=== PATIENT | male | born 1945 | race Caucasian/White ===

== ENCOUNTER 2017-05-23 13:56 | Emergency (ER) | payer MEDICARE, OTHER ==
--- NOTE | 2017-05-23 14:29 | ERNOTE ---
Medical Problem HPI - Narrative Date of Service: 05/23/17 - General Chief Complaint: General Assessment Time Seen by Provider: 05/23/17 14:12 Source: patient Exam Limitations: no limitations - Immun/Allergies/Home Medications Immunizations: IMMUNIZATION HX Immunizations Up to Date Yes History of Influenza Vaccine Yes Hx Pneumococcal Vaccination Yes Allergies/Adverse Reactions: Allergies No Known Allergies Allergy (Verified 05/23/17 14:11) Home Medications: HOME MEDICATIONS Insulin Aspart [Novolog] 35 unit SQ BID 01/26/15 [Last Taken Unknown] Insulin Glargine,Hum.rec.anlog [Lantus] 90 unit SQ HS 01/26/15 [Last Taken Unknown] Lisinopril [Zestril] 40 mg PO DAILY 01/26/15 [Last Taken Unknown] Simvastatin [Zocor] 80 mg PO DAILY 01/26/15 [Last Taken Unknown] Naproxen [Naprosyn] 500 mg PO BID PRN #60 tab 05/23/17 [Last Taken Unknown] - History of Present History Narrative: Pt. ambulates in from home with c/o LLE pain and L flank pain and LLQ abd pain with constipation. Pt. denies any fever but states that his abd pain and constipation started 2 days ago. Pt. denies any SOB, CP, nausea or vomiting dysuria or hematuria. Pt. denies any alleviating or aggravating factors, or prehospital treatment. Review of Systems - Review of Systems Constitutional: Present: no symptoms reported. Absent: recent illness, fever, chills, weakness, fatigue, malaise EYE: Present: no symptoms reported ENT: Present: no symptoms reported Respiratory: Present: no symptoms reported. Absent: shortness of breath, cough , wheezing Cardiology: Present: no symptoms reported. Absent: chest pain, palpitations, edema Gastrointestinal/Abdominal: Present: constipation, abdominal pain. Absent: nausea, vomiting, diarrhea Genitourinary: Present: pain - L flank. Absent: dysuria, hematuria, decreased urinary output Musculoskeletal: Present: back pain - L flank. Absent: neck pain, joint pain Skin: Present: no symptoms reported. Absent: rash, change in color Neurological: Present: no symptoms reported. Absent: headache, dizziness/light- headedness, numbness, tingling All Other Systems: All systems neg except as marked - Patient's Past Medical History Patient History - Medical: Chronic Pain, Diabetes Type 2 Insulin Dependent, Kidney stone Patient History - Cardiac/Respiratory: Hypertension Patient History - Cancer: No Hx of Cancer Patient History - Surgical Procedures: Other Patient History - Other: None - Social History Smoking Status: Current every day smoker Have you smoked in the past 12 months: Yes - Immunizations Immunizations Up to Date: Yes Hx Pneumococcal Vaccination: Yes History of Influenza Vaccine: Yes Physical Exam - Physical Exam General Appearance: Present: wd/wn, alert, no apparent distress Head Exam: Present: normal inspection, no evidence of injury Eye Exam: Normal inspection: bilateral, PERRL: bilateral, EOMI: bilateral Ears, Nose, Throat: Present: normal ENT inspection, normal pharynx Neck: Present: normal inspection, nontender. Absent: lymphadenopathy (R), lymphadenopathy (L) Respiratory: Present: no respiratory distress, no accessory muscle use, chest nontender, decreased breath sounds - BLL, crackles - course uupper lobes clear with cough Cardiovascular/Chest: Present: regular rate, rhythm, no murmur, normal peripheral pulses Gastrointestinal/Abdominal: Present: tenderness - LLQ, abnormal bowel sounds - hypo, distended, other - ketosis of sin related to SQ insulin use in diffuse areas of abdominal wall. Absent: McBurney sign, Obturator sign, Lang sign, Psoas sign, mass, hernia Back Exam: Present: normal range of motion, no vertebral tenderness, CVA tenderness (L). Absent: vertebral tenderness, decreased range of motion, muscle spasm Extremity Exam: Present: normal range of motion, no edema, calf tenderness Neurological Exam: Present: alert, oriented, normal mood/affect, no motor/ sensory deficits Skin Exam: Present: normal color, warm/dry. Absent: pallor, skin rash ED Progress - Date and Time Seen: Date and Time: 05/23/17 14:27 Feel that since pt. is sedentary and he has L calf and post knee pain that radiates to his inner thigh he could have a DVT and will assess with US and pt. is most likely constipated so if pt. without obstruction or free air will treat constipation in ER and outpatient basis. 05/23/17 15:51 Pt. with significantly elevted WBC and LLQ pain and pt. without any evidence for this elevated WBC on plain film discussed case with Dr Drake and he recommends obtaining a CT of his abdomen. 05/23/17 16:[address] temporarily as pt. states that his WBC is always elevated 15-[address] scan. 05/23/17 17:[address] at [facility] as they state they are unable to get doctors global compensation director after hours. Educated pt. that he needs to make follow up call and get bone marrow biopsy as the elevated WBC and leg pain can be an ominous sign and pt. refused bone marrow biopsy in past per pt report when his PCP and oncology wanted to do so previously. - Results and Orders Patient's Lab Results:: I have reviewed the patient's lab results. - Vital Signs Patient's Vital Signs:: I have reviewed the patient's vital signs. Vital Signs: Vital Signs 05/23/17 14:07 Temperature 36.3 C L Pulse Rate 89 Respiratory 12 Rate Blood Pressure 125/71 O2 Sat by Pulse 94 Oximetry - X-Ray X-Ray #1 X-Ray: abdomen Interpretation: Reviewed by me X-ray Comments: non obstructive bowel gas and moderate stool retention. - CT/Ultrasound CT/Ultrasound Narrative: LLE US negative for DVT - Progress/Reassessment Chief Complaint: Lower Extremity Pain/ Injury Progress:: Improved Departure - Departure Clinical Impression: Constipation Qualifiers: Constipation type: unspecified constipation type Qualified Code(s): K59.00 - Constipation, unspecified Disposition: Home self-care Condition: Good Instructions: Constipation, Adult, [id number] Additional Instructions: Please follow up with your primary doctor as soon as able. Call them tomorrow. May take Tylenol for pain as needed 1000mg every 6 hours. Please take one capful of miralax daily. Prescriptions: Naproxen [Naprosyn] 500 mg PO BID PRN #60 tab PRN Reason: Pain
[2017-05-23 14:42] LABS: Hematocrit 44.2 % (42.0-52.0); Hemoglobin 14.3 gm/dL (13.5-18.0); Mean Cell Volume 91.5 fl (78-100); Mean Corpuscular Hemoglobin 29.6 pg (27-31); Mean Corpuscular Hgb Conc 32.4 g/dl (32-36); Neutrophil # 12.8 K/mm3 (1.3-6.0); Neutrophil % 69.8 % (42-75.0); Platelet Count 202 K/mm3 (150-450); Red Blood Count 4.83 M/mm3 (4.7-6.0); Red Cell Distribution Width 14.3 % (11.5-14.0); White Blood Count 18.3 K/mm3 (4.0-10.5)
[2017-05-23 15:03] LABS: Albumin * 3.7 gm/dl (3.4-5.0); Anion Gap 14.9 mmol/L (6.8-13.8); BUN/Creatinine Ratio 24.6 (9.0-21.6); Bilirubin, Total 0.4 mg/dL (0.0-1.1); Ca. Corrected For Albumin 9.3 mg/dL (8.4-10.2); Calcium * 9.4 mg/dL (7.9-10.9); Carbon Dioxide 25.7 mmol/L (24-32.6); Potassium 4.6 mmol/L (3.4-4.6); Total Protein 7.5 gm/dL (6.2-8.2)
[2017-05-23 15:19] LABS: Hemoglobin A1C 7.1 % (4.00-6.0)
[2017-05-23] MEDS ORDERED: KETOROLAC TROMETHAMINE 30 MG/ML VIAL IV ONE (15:24)
[2017-05-23] MEDS ORDERED: NORMAL SALINE 1,000 ML IV ONE (15:24)
[2017-05-23 15:29] LABS: Urine Bilirubin Negative (NEGATIVE); Urine Blood Negative /ul (NEGATIVE); Urine Ketone Negative (NEGATIVE); Urine Nitrite Negative (NEGATIVE); Urine Protein Negative (NEGATIVE); Urine Specific Gravity 1.015 SP.GR. (1.005-1.030); Urine Urobilinogen Normal (NORMAL)
[2017-05-23 15:43] LABS: Urine Appearance Clear; Urine Bacteria TRACE; Urine Color Yellow; Urine RBC None Seen /hpf (0-5); Urine WBC 0-5 /hpf (0-5)
[2017-05-23] MEDS ORDERED: KETOROLAC TROMETHAMINE 30 MG/ML VIAL ONE (15:46)
[2017-05-23] MEDS ORDERED: DIATRIZOATE MEGLUMINE, SODIUM 30 ML BTL ONE (16:13)
[2017-05-23 18:11] VITALS: BP 172/82
== END 2017-05-23 18:18 | disposition home or self-care (01) ==
LOC: ER 13:56
DX: K59.00 Constipation, unspecified (principal); G89.29 Other chronic pain; E11.9 Type 2 diabetes mellitus without complications; Z79.4 Long term (current) use of insulin; I10 Essential (primary) hypertension; F17.200 Nicotine dependence, unspecified, uncomplicated; Z53.29 Procedure and treatment not carried out because of patient's decision for other reasons; Z87.442 Personal history of urinary calculi